=== PATIENT | female | born 1970 | race Caucasian/White ===

== ENCOUNTER 2017-01-30 08:41 | Inpatient (IN) ==
[2017-01-29 10:20] LABS: Basophils % 0.4 % (0.0-0.8); Eosinophils # 0.1 10*3/uL (0.0-0.87); Eosinophils % 1.4 % (0.00-10.9); Hematocrit 39.7 VOL% (35.7-47.0); Hemoglobin 13.5 GM/DL (12.0-16.0); Immature Granulocytes % 0.3 %; Immature Granulocytes Absolute 0.02 #; Lymphocytes # 1.9 10*3/uL (1.4-4.0); Lymphocytes % 26.3 % (21.3-54.2); Mean Corpuscular Hemoglobin 30 PG (27-34); Mean Corpuscular Volume 88.4 FL (87-102); Mean Platelet Volume 10.4 FL (9.6-12.0); Monocytes # 0.5 10*3/uL (0.11-0.8); Monocytes % 6.6 % (1.7-12.7); Neutrophils # 4.6 10*3/uL (1.4-7.4); Platelet Count 239 T/CUMM (130-400); Red Blood Count 4.49 MC/CUMM (3.8-5.5); Red Cell Distribution Width 13.4 % (9.3-17.3); White Blood Count 7.1 T/CUMM (4-12)
--- NOTE | 2017-01-29 10:27 | EKG Report ---
Stationary ECG Study [facility] Test Date: 01/29/2017 10:26:33 AM Pat Name: ARIELA AGUSTIN Department: Room: Gender: F Dispatcher [place]: BRITANY MOREJON : 1970 Requested by: Abel Morejon Order Number: [id number] Reading MD: ALIE BLEVINS Intervals [place] Rate: 69 P: -19 HI: 140 QRS: 102 QRSD: 93 T: 48 QT: 375 QTc: 395 Interpretive Statements SINUS RHYTHM MARKED RIGHT AXIS DEVIATION LOW QRS VOLTAGE IN PRECORDIAL LEADS Electronically Signed On 01-29-17 13:02:40 CDT by ALIE BLEVINS [email or web address]
[2017-01-29 10:58] LABS: Albumin 3.6 G/DL (3.4-5.0); Bilirubin,Total 0.8 MG/DL (0.2-1.0); Calcium 9.3 MG/DL (8.5-10.1); Osmolality,Calculated 272.7 MOS/KG (273-304); Potassium 4.3 MMOL/L (3.5-5.1); Total Protein 6.6 G/DL (6.4-8.3)
--- NOTE | 2017-01-29 13:23 | XRay Report ---
XR chest 2V Date: 01/29/2017 10:03 AM History: Respiratory preoperative evaluation Comparison: None Technique: PA and lateral chest Findings: The heart is normal in size. The lungs are clear. Minimal degenerative changes are noted. Unremarkable mediastinum. Impression: No acute cardiopulmonary pathology identified. PROCEDURE INTERPRETED AT [facility] DEPARTMENT OF RADIOLOGY Final Report Signed by: Dr. Karon Byers
[2017-01-30] MEDS ORDERED: SODIUM CHLORIDE 0.9% IV ONE (10:00)
[2017-01-30] MEDS ORDERED: HYDROMORPHONE IV ONE (10:00)
[2017-01-30] MEDS: LACTATED RINGERS 1,000 ML IV SCH ×2 (10:05→11:50)
[2017-01-30] MEDS ORDERED: ceFAZolin 1,000 MG VIAL ONE (10:53)
[2017-01-30] MEDS ORDERED: SODIUM CHLORIDE 0.9% 100 ML IV ONE (10:54)
[2017-01-30] MEDS ORDERED: HYDROmorphone 2 MG/1 ML VIAL IV STA (11:00)
[2017-01-30] MEDS ORDERED: HYDROmorphone 2 MG/1 ML VIAL ONE (11:03)
[2017-01-30] MEDS ORDERED: ROPIVACAINE 0.5% 30 ML VIAL ONE (11:21)
[2017-01-30] MEDS ORDERED: PROMETHAZINE 25 MG/1 ML VIAL IM PRN (12:34)
[2017-01-30] MEDS ORDERED: diphenhydrAMINE 50 MG/1 ML VIAL IM PRN (12:34)
[2017-01-30] MEDS ORDERED: BISACODYL 5 MG TABLET PO PRN (12:34)
[2017-01-30] MEDS ORDERED: oxyCODONE/ACETAMINOPHEN 5-325 MG TABLET PO PRN (12:34)
[2017-01-30] MEDS ORDERED: FAMOTIDINE 20 MG TABLET PO PRN (12:34)
[2017-01-30] MEDS ORDERED: diphenhydrAMINE CAP 25 MG CAPSULE PO PRN (12:34)
[2017-01-30] MEDS ORDERED: LACTATED RINGERS 500 ML IV PRN (12:34)
[2017-01-30] MEDS ORDERED: ACETAMINOPHEN 325 MG TABLET PO PRN (12:34)
[2017-01-30] MEDS ORDERED: PROMETHAZINE 25 MG TABLET PO PRN (12:34)
[2017-01-30] MEDS ORDERED: MAGNESIUM HYDROXIDE SUSP 30 ML UDCUP PO PRN (12:34)
[2017-01-30] MEDS ORDERED: NALOXONE 0.4 MG/ML VIAL IM PRN (12:34)
[2017-01-30] MEDS ORDERED: HYDROmorphone 2 MG/1 ML VIAL IV PRN (12:34)
[2017-01-30] MEDS ORDERED: ONDANSETRON 4 MG/2 ML VIAL IV PRN (12:34)
[2017-01-30] MEDS ORDERED: KETOROLAC 15 MG/1 ML VIAL IV PRN (12:34)
[2017-01-30] MEDS ORDERED: CELECOXIB 200 MG CAPSULE PO PRN (12:34)
[2017-01-30] MEDS ORDERED: LACTATED RINGERS 250 ML IV PRN (12:34)
--- NOTE | 2017-01-30 12:44 | Anesthesia Post-Op ---
Anesthesia Post OP - Post Ansesthetic Evaluation Patient seen in post op: Yes Resp: within normal limits CV: within normal limits Mental: within normal limits Temp: within normal limits [id number]-[id number]-[id number]: within normal limits Nausea and Vomiting: within normal limits Pain: within normal limits
[2017-01-30] MEDS ORDERED: MIDAZOLAM 2 MG/2 ML VIAL ONE (12:47)
[2017-01-30] MEDS ORDERED: fentaNYL 100 MCG/2 ML VIAL ONE (12:47)
--- NOTE | 2017-01-30 13:14 | Operative Note ---
Date of procedure: 01/30/17 Pre-op diagnosis: Lumber radiculopathy Post-op diagnosis: same Procedure: Preoperative diagnosis: #1 lumbar radiculopathy, #2 lumbar degenerative disc disease, #3 thoracic radiculopathy, #4 thoracic spondylosis, #5 chronic pain syndrome, #6 failed back syndrome. Postoperative diagnosis: Same Procedure: Placement of tunneled intrathecal externalized spinal catheter Anesthesia: MAC Complications: None Findings: The patient tolerated the procedure well, were able to place the tip of the catheter at approximately T12. History of present illness the patient is a very pleasant 46-year-old female who comes to me from [facility] with having had multiple back surgeries and failed spinal cord similar trial and permanent implants with paddle leads. She has severe chronic pain that has not responded to multiple modalities including physical therapy and surgery injection therapy neuromodulation opioid therapy etc. she is now candidate for intrathecal spinal trial. History of present illness: As above Procedure note: The risk benefits and indications of the procedure were explained to the patient including option do not at all, she understood these and wished to proceed. The patient was placed in prone position on the operating table, her back was prepped with alcohol and ChloraPrep allowed to dry and sterilely draped. The needle use was a 17-gauge modified to a needle which was inserted through skin wheal and advanced into the subarachnoid space above her fusion at the L3-4 level. Clear spinal fluid was returned from the hub of the needle. Then advanced the flexed hip type arrow catheter with wire reinforcement within the catheter. This is advanced under fluoroscopy until the tip was at approximately T12. Once adequate position had been achieved and then back the needle out somewhat and made a small incision around the needle site. The skin was raised lateral to this and a second Touhy needle was advanced from the lateral side until the tip entered the wound at the midline site and exited out the wound. The original Touhy needle was removed and the catheter then was advanced through the tunnel needle and the tunnel needle was removed thus tunneling the catheter laterally. Using 3-0 silk stitches the wound was closed at the midline. A stitch was placed at the exit site catheter and the catheter was sutured to the skin as well. The catheter connector was placed on the tip of the catheter and this was taped and Steri-Stripped so that the connection would not come apart. I then injected 3 cc 1.5% bupivacaine with 1-400,000 epinephrine through micropore filter and through the catheter into the subarachnoid space. Prior to doing this I did aspirate 1 cc of clear spinal fluid. The patient then had her wounds sterilely dressed and she was taken to recovery area in satisfactory condition. Anesthesia: MAC Surgeon / Physician: Abel Mathias Estimated blood loss: none Specimens: none sent Condition: stable Disposition: PACU Results - Labs CBC & BMP: 01/29/17 10:14 01/29/17 10:14 Discharge Plan - Discharge Data Condition at Discharge: Stable - Follow Up or Referral - Forms/Instructions
[2017-01-30] MEDS ORDERED: PROPOFOL 200 MG/20 ML VIAL IV ONE (15:00)
[2017-01-30] MEDS ORDERED: LIDOCAINE 1% 5 ML VIAL ONE (15:00)
[2017-01-30] MEDS: HydrOXYzine PAMOATE 25 MG CAPSULE PO PRN ×2 (16:19→22:30)
[2017-01-30] MEDS ORDERED: ALPRAZolam 0.25 MG TABLET PO PRN (17:41)
[2017-01-30] MEDS ORDERED: HydrOXYzine PAMOATE 25 MG CAPSULE PO PRN (17:41)
[2017-01-30] MEDS: diphenhydrAMINE 50 MG/1 ML VIAL IV PRN (21:00)
[2017-01-30] MEDS: BISOPROLOL 5 MG TABLET PO SCH (21:01)
[2017-01-30] MEDS: PRAMIPEXOLE 0.25 MG TABLET PO SCH (21:01)
[2017-01-30] MEDS: ZALEPLON 5 MG CAPSULE PO PRN (21:01)
[2017-01-30] MEDS: GABAPENTIN 300 MG CAPSULE PO SCH (21:01)
[2017-01-30] MEDS: KETOROLAC 30 MG/1 ML VIAL IV PRN (22:30)
[2017-01-31] MEDS: HydrOXYzine PAMOATE 25 MG CAPSULE PO PRN ×4 (06:07→21:41)
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
[2017-01-31] MEDS ORDERED: HYDROMORPHONE IV ONE (09:00)
[2017-01-31] MEDS ORDERED: SODIUM CHLORIDE 0.9% IV ONE (09:00)
[2017-01-31] MEDS: VENLAFAXINE XR 75 MG CAPSULE PO SCH (09:18)
[2017-01-31] MEDS: BISOPROLOL 5 MG TABLET PO SCH ×2 (09:18→20:41)
[2017-01-31] MEDS: GABAPENTIN 300 MG CAPSULE PO SCH ×3 (09:18→20:41)
[2017-01-31] MEDS: LINACLOTIDE 145 MCG CAPSULE PO SCH (09:19)
--- NOTE | 2017-01-31 13:33 | Event Note ---
Patient has overall improvement in her pain however having significant generalized itching. We will switch her from intrathecal Dilaudid to intrathecal morphine to see if this changes.
[2017-01-31] MEDS ORDERED: MORPHINE 10 MG/10 ML VIAL EPIDURAL SCH (15:30)
[2017-01-31] MEDS: MORPHINE EPIDURAL SCH (16:48)
[2017-01-31] MEDS: SODIUM CHLORIDE 0.9% EPIDURAL SCH (16:48)
--- NOTE | 2017-01-31 16:49 | Event Note ---
The patient reports worsening itching today and thus the Dilaudid intrathecal infusion was discontinued. They have just hooked up the morphine intrathecal infusion and will try this as the second step in her intrathecal trial. Will reevaluate first thing in the morning.
[2017-01-31] MEDS: LACTATED RINGERS 1,000 ML IV SCH ×2 (17:24→20:32)
[2017-01-31] MEDS: diphenhydrAMINE 50 MG/1 ML VIAL IV PRN (18:29)
[2017-01-31] MEDS: PRAMIPEXOLE 0.25 MG TABLET PO SCH (20:41)
[2017-01-31] MEDS: ZALEPLON 5 MG CAPSULE PO PRN (20:45)
[2017-01-31] MEDS: KETOROLAC 30 MG/1 ML VIAL IV PRN (21:40)
[2017-02-01] MEDS: KETOROLAC 30 MG/1 ML VIAL IV PRN ×2 (04:51→15:21)
[2017-02-01] MEDS: LINACLOTIDE 145 MCG CAPSULE PO SCH (06:33)
--- NOTE | 2017-02-01 07:00 | Pain Management Progress Note ---
Assessment and Plan (1) Lumbar radiculopathy Problem details: Low back and bilateral leg pain. Status: Acute Assessment and plan: 02/01/2017. Overall the patient is markedly improved with morphine. No significant itching. No excess sedation. Will increase the rate of the infusion slightly this morning and she is to walk the halls. I examine her spinal catheter site and it looks good no signs of redness infection, etc. she reported wetness on her low back prior to dressing change this morning however did not see any signs of infection. The catheter was intact and connected. Will increase rate and allow her to walk today and plan on discharge late today. y 01/31/2017. The patient is a very pleasant 46-year-old female who has had multiple back surgeries and is left with thoracic and lumbar spinal pain. She has a thoracic radiculopathy as well as a lumbar radiculopathy. She is undergone multiple interventions including multiple spinal cord stimulator leads placed, multiple different medicines tried including multiple opioids and adjuvant medicines, she has been to spinal surgery, she has been through extensive physical therapy, and despite all these interventions has persistent back pain. She was sent to me for consideration for intrathecal opioids. She is presently undergoing intrathecal trial. She is most greater than 50% improved at this time with intrathecal Dilaudid. Only significant side effect is itching. No significant sedation. The plan at this point is to continue with the trial. I will check on her at noon today and make further recommendations. If her pain continues to improve and she is doing well we may consider discharge tonight if not we will look at possibly going home tomorrow. y Current Visit: Yes Pain - Subjective Interval history: Improved back pain without itching Exam - Constitutional Vitals: Period Temp Pulse Resp BP Sys/Arrieta Pulse Ox Last 24 Hr 97.2 F-98.2 F 53-96 16-20 106-140/59-98 93-98 General appearance: normal weight, no acute distress - Back Exam Back exam: Present: vertebral tenderness, other (Examination of back shows no redness no signs of infection and intact spinal catheter) - Neurological Exam Neurological exam: Present: motor sensory deficit Results - Labs CBC & BMP: 01/29/17 10:14 01/29/17 10:14 Quality Measures - VTE Contraindication to Pharmacological VTE Prophylaxis: Continuous Epidural Infusion Specialty Discharge - Follow Up or Referrals Follow up with: Abel Mathias MD [Physician] - 02/07/17 3:30 pm (appointment with david sanchez np on february 02 2017 at 9:45 for wound check)
[2017-02-01] MEDS ORDERED: SODIUM CHLORIDE 0.9% EPIDURAL SCH (08:52)
[2017-02-01] MEDS ORDERED: MORPHINE EPIDURAL SCH (08:52)
[2017-02-01] MEDS: GABAPENTIN 300 MG CAPSULE PO SCH ×2 (08:53→15:21)
[2017-02-01] MEDS: BISOPROLOL 5 MG TABLET PO SCH (08:53)
[2017-02-01] MEDS: SODIUM CHLORIDE 0.9% EPIDURAL SCH (09:35)
[2017-02-01] MEDS: MORPHINE EPIDURAL SCH (09:35)
[2017-02-01] MEDS: VENLAFAXINE XR 75 MG CAPSULE PO SCH (11:28)
[2017-02-01] MEDS: HydrOXYzine PAMOATE 25 MG CAPSULE PO PRN (12:03)
[2017-02-01 16:16] VITALS: BP 118/72
--- NOTE | 2017-02-01 17:27 | Discharge Summary ---
Hospital Course - Hospital Course Hospital Course: The patient was admitted after placement of a intrathecal spinal catheter and surgery. For the first 24 hours she had intrathecal Dilaudid infused. She had improvement in her pain, however had intolerable intractable itching. On the second day of admission this was switched to intrathecal morphine. With this the itching went away and by the third day of admission her pain was 70% are more improved and she was ambulating freely in the halls. Her use of breakthrough medicines went down dramatically. Her trial was considered successful. Prior to discharge her spinal catheter was removed intact. Diagnosis - Discharge Diagnosis (1) Lumbar radiculopathy Status: Acute Specialty Discharge - Follow Up or Referrals Follow up with: Abel Mathias MD [Physician] - 02/07/17 3:30 pm (appointment with david sanchez np on february 02 2017 at 9:45 for wound check) Discharge Plan - Discharge Data Disposition: Disch To Home/Self Care Condition at Discharge: Stable Discharge Diet: advance to your usual diet Activity: increase activity as tolerated Hygiene: may shower Weight Bearing at Discharge: weight bear as tolerated Driving: not for (24 hours) Contact your physician if you experience:: fever over 101, Difficulty voiding, Redness or swelling, Nausea/Vomiting, Bleeding, pain uncontrolled by pain medications - Discharge Medications No Action Pramipexole Di-HCl [Mirapex] 0.5 mg PO BEDTIME Linaclotide [Linzess] 145 mcg PO AC BREAKFAST Gabapentin 300 mg PO TID Venlafaxine Xr [Effexor XR] 75 mg PO DAILY Hydromorphone HCl [Dilaudid] 8 mg PO Q6H Bisoprolol [Zebeta] 5 mg PO BID HydrOXYzine PAMOATE CAP [Vistaril Cap] 25 mg PO Q6H PRN PRN Reason: Itching ALPRAZolam [Xanax] 0.25 mg PO Q4H PRN PRN Reason: Anxiety Hydrocodone/Acetaminophen [[place] 10-325 Tablet] 1 each PO Q6H Estradiol 0.1MG Patch (1X Wk) [[place] 0.1 mg/24 hr Patch] 1 patch TRANSDERM Q7DAY - Follow Up or Referral Follow Up: Abel Mathias MD [Physician] - 02/07/17 3:30 pm (appointment with david sanchez np on february 02 2017 at 9:45 for wound check) - Forms/Instructions Instructions: Lumbar Radiculopathy (GEN) Exam - Constitutional Vitals: Period Temp Pulse Resp BP Sys/Arrieta Pulse Ox Last 24 Hr 97.1 F-98.2 F 53-96 18-20 112-154/59-98 95-99 General appearance: normal weight - Respiratory Respiratory exam: Present: clear to auscultation bilaterally - Cardiovascular Cardiovascular exam: Present: regular rate and rhythm - GI/Abdominal GI/Abdominal exam: Present: normal bowel sounds - Back Exam Back exam: Present: vertebral tenderness, other (Catheter sites clean without signs of infection.) - Neurological Exam Neurological exam: Present: alert, oriented X3 - Psychiatric Psychiatric exam: Present: normal affect, normal mood - Skin Skin exam: Present: normal color Discharge Results Labs on day of discharge: Labs from last 24 hours 02/01/17 02/01/17 02/01/17 16:22 11:39 07:14 POC Glucose 106 127 H 81 01/31/17 01/31/17 01/31/17 20:23 16:08 10:54 POC Glucose 94 96 91 DS: Provider Date of admission: 01/30/17 12:34 Primary care physician: . No PCP Attending physician on admission: Abel Mathias MD Consults: 01/30/17 12:41 Consult to Physical Therapy [CONS] Routine Reason for Physical Therapy: Evaluate and Treat Start Therapy: Today Consult Comment: Help ambulate 01/30/17 15:26 Consult to Pastoral Services [CONS] Routine Comment: Pastoral Screen: Request Ring Conductor Visit Pastoral Screen Source of Request: Patient Other Source Requesting: chronic pain 01/31/17 15:21 Consult to Case Mgmt/Social Srvs [CONS] Routine Reason for Case Mgmt/Social Srvs: Equipment Discharge Planning Consult Comment: Deliver Rollator to Pt's room 345 before D/C; Pt 5ft 3in 163lbs Discharging clinician: Abel Mathias MD
[2017-02-06] MEDS ORDERED: ESTRADIOL 0.1 MG PATCH (1X WK) TRANSDERM SCH (09:00)
== END 2017-02-01 18:30 | disposition home or self-care (01) | DRG 552 ==
LOC: N.OR 08:41 → N.SDSINP 09:43 → N.3E 12:34
PROVIDERS: ADMIT Pain Medicine Interventional Pain Medicine; ATTEND Pain Medicine Interventional Pain Medicine

== ENCOUNTER 2017-02-27 08:34 | Inpatient (IN) ==
[2017-02-27] MEDS ORDERED: SUCCINYLCHOLINE 200 MG/10 ML VIAL ONE (09:00)
[2017-02-27] MEDS ORDERED: GLYCOPYRROLATE 0.4 MG/2 ML VIAL ONE (09:00)
[2017-02-27] MEDS ORDERED: LIDOCAINE 100 MG/5 ML SYRINGE ONE (09:00)
[2017-02-27] MEDS ORDERED: SEVOFLURANE 1 UNIT/15 MINUTE INH ONE ×2 (09:00→14:09)
[2017-02-27] MEDS ORDERED: PROPOFOL 200 MG/20 ML VIAL IV ONE (09:00)
[2017-02-27] MEDS: LACTATED RINGERS 1,000 ML IV SCH ×2 (09:15→15:06)
[2017-02-27] MEDS ORDERED: SODIUM CHLORIDE 0.9% 100 ML IV ONE (09:26)
[2017-02-27] MEDS ORDERED: ceFAZolin 1,000 MG VIAL ONE (09:26)
[2017-02-27] MEDS ORDERED: HYDROmorphone 2 MG/1 ML VIAL IV ONE (10:00)
[2017-02-27] MEDS ORDERED: HYDROmorphone 2 MG/1 ML VIAL ONE ×2 (10:03→14:06)
[2017-02-27] MEDS ORDERED: MUPIROCIN 2% OINT 22 GM TUBE TOP ONE (10:24)
[2017-02-27] MEDS ORDERED: BUPIVACAINE 0.5% 50 ML VIAL ONE (10:24)
[2017-02-27] MEDS ORDERED: BACITRACIN 50,000 UNIT VIAL ONE (10:25)
[2017-02-27] MEDS ORDERED: POLYMYXIN B 500,000 UNIT VIAL ONE (10:25)
[2017-02-27] MEDS ORDERED: diphenhydrAMINE 50 MG/1 ML VIAL IV ONE (11:00)
[2017-02-27] MEDS ORDERED: diphenhydrAMINE 50 MG/1 ML VIAL ONE (11:05)
--- NOTE | 2017-02-27 13:55 | Operative Note ---
Date of procedure: 02/27/17 Pre-op diagnosis: Lumbar radiculopathy Post-op diagnosis: same Procedure: Preoperative diagnosis: #1 lumbar radiculopathy, #2 lumbar degenerative disc disease, #3 thoracic radiculopathy, #4 thoracic spondylosis, #5 chronic pain syndrome, #6 failed back syndrome. Postoperative diagnosis: Same Procedure: Placement of intrathecal drug infusion system including programmable Medtronic drug infusion pump 40 cc and intrathecal catheter. Anesthesia: MAC Complications: None Findings: The patient tolerated the procedure well History of present illness: The patient is very pleasant 46-year-old female with low back and leg pain as well as mid back and torso pain she has both a thoracic and lumbar radiculopathy. She has had multiple spinal surgeries and has failed these with persistent consistent pain. She is failed other modalities including time release opioids and is found to be an appropriate candidate for intrathecal drug infusion system based on history and exam and psychological profile and clearance by. The medicine team. She underwent a successful intrathecal trial with 90% reduction in her pain with intrathecal morphine. Estimated blood loss: Minimal Procedure note: The risk benefits and indications of the procedure were explained to the patient, including the option to do nothing at all, she understood these wished to proceed. The patient was placed in the lateral decubitus position with the right set up after general anesthesia had been induced. All pressure points had been padded. Her abdomen back and torso were prepped with alcohol then ChloraPrep allowed to dry and sterilely draped. A sticky iodoform drape was placed over the surgical field as well. The midline site in the back as well as the pocket site and abdomen were anesthetized with 0.5% ropivacaine. A total of 20 cc of this local anesthetic was used. Using a 15 blade scalpel incision was made over the old scar at the lower aspect of the lumbar spine, hemostasis was obtained with electrocautery. Using blunt dissection I carried this out down the level of supraspinous ligament. I then advanced through the wound the 14-gauge modified to a needle and this was advanced until it entered the subarachnoid space without difficulty. Clear spinal fluid was returned from the hub of the needle. Then advanced the Medtronic intrathecal catheter and this was advanced in a cephalad direction. The tip of the catheter was advanced under fluoroscopy until it was located at the T7-8 junction. Once this had been achieved I then removed the stylette and needle leaving the catheter in place. A spur string stitch was placed around the entry site of the catheter. This was a 0 silk stitch and it was tied off securing the cath in place. Then passed the symptoms type anchor over the catheter and sensitive to the catheter and sutured as well using 0 silk stitches. I then turned my attention to the pocket site over the right abdomen which had been previously marked. Was doing this an assistant professor of business prepped the new intrathecal spinal pump. The sterile water was removed and the pump was filled with 40 cc of 5 mg/mL morphine preservative-free. I then anesthetized the proximal site right abdomen and using a 15 blade scalpel incision over the right abdomen and then using blunt dissection created a pocket received the spinal pump. Hemostasis was obtained with electrocautery. I then passed the passing device from the pocket site to the midline site in the back this was tunneled under the skin to the back. The cord was removed and the catheter was advanced through the passing device without difficulty the passing device was then was removed thus tunneling the catheter to the pocket site. Free flow of spinal fluid was obtained from the catheter. I then cut off 8 cm of the catheter and attached the catheter and to the catheter and secured this in place with the locking mechanism supplied on the catheter. The free end of the catheter then was secured to the new pump and the catheter connection was clicked into place. The pump was placed into the pocket and sutured at least 3 locations with 0 silk stitches to the suture loops. The wounds were irrigated with copious amount of antibiotic solution, the deep structures were closed with 2-0 Vicryl. The skin was closed with mati and the wounds were sterilely dressed. The patient was then taken to recovery area in satisfactory condition where the pump was started at 0.8 mg per day of preservative-free morphine. Anesthesia: GETA Surgeon / Physician: Abel Mathias Estimated blood loss: minimal Specimens: none sent Condition: stable Disposition: PACU Discharge Plan - Discharge Data Condition at Discharge: Stable Hygiene: may shower (Not for 72 hours) Contact your physician if you experience:: fever over 101, Difficulty voiding, Redness or swelling, Nausea/Vomiting, Shortness of breath, Bleeding, pain uncontrolled by pain medications - Discharge Medications No Action Pramipexole Di-HCl [Mirapex] 0.5 mg PO BEDTIME Linaclotide [Linzess] 145 mcg PO AC BREAKFAST Gabapentin 300 mg PO TID Venlafaxine Xr [Effexor XR] 75 mg PO DAILY Hydromorphone HCl [Dilaudid] 8 mg PO Q6H Bisoprolol [Zebeta] 5 mg PO BID HydrOXYzine PAMOATE CAP [Vistaril Cap] 25 mg PO Q6H PRN PRN Reason: Itching ALPRAZolam [Xanax] 0.25 mg PO Q4H PRN PRN Reason: Anxiety Hydrocodone/Acetaminophen [[place] 10-325 Tablet] 1 each PO Q6H Estradiol 0.1MG Patch (1X Wk) [[place]im[place] 0.1 mg/24 hr Patch] 1 patch TRANSDERM Q7DAY - Follow Up or Referral - Forms/Instructions
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
[2017-02-27] MEDS ORDERED: ONDANSETRON 4 MG/2 ML VIAL ONE (14:04)
[2017-02-27] MEDS: HYDROmorphone 2 MG/1 ML VIAL IV PRN ×3 (14:08→14:25)
[2017-02-27] MEDS ORDERED: fentaNYL 100 MCG/2 ML VIAL ONE (14:09)
[2017-02-27] MEDS ORDERED: ONDANSETRON 4 MG/2 ML VIAL IV PRN ×2 (14:14→14:50)
[2017-02-27] MEDS ORDERED: FAMOTIDINE 20 MG TABLET PO PRN (14:50)
[2017-02-27] MEDS ORDERED: diphenhydrAMINE 50 MG/1 ML VIAL IM PRN (14:50)
[2017-02-27] MEDS ORDERED: METHOCARBAMOL 750 MG TABLET PO PRN (14:50)
[2017-02-27] MEDS ORDERED: ALPRAZolam 0.25 MG TABLET PO PRN (16:27)
[2017-02-27] MEDS: MORPHINE 2 MG/1 ML SYRINGE IV PRN ×2 (17:40→21:18)
[2017-02-27] MEDS: BISOPROLOL 5 MG TABLET PO SCH (21:17)
[2017-02-27] MEDS: PRAMIPEXOLE 0.25 MG TABLET PO SCH (21:17)
[2017-02-27] MEDS: HydrOXYzine PAMOATE 25 MG CAPSULE PO PRN (21:18)
[2017-02-27] MEDS: GABAPENTIN 300 MG CAPSULE PO SCH (21:18)
[2017-02-27] MEDS: ZALEPLON 5 MG CAPSULE PO PRN (21:26)
[2017-02-27] MEDS: ESTRADIOL 2 MG TABLET PO SCH (21:26)
[2017-02-28] MEDS: MORPHINE 2 MG/1 ML SYRINGE IV PRN ×5 (05:17→19:24)
[2017-02-28] MEDS: HydrOXYzine PAMOATE 25 MG CAPSULE PO PRN ×2 (07:04→12:15)
--- NOTE | 2017-02-28 07:08 | Discharge Summary ---
Hospital Course - Hospital Course Hospital Course: Admitted to the hospital after placement of a intrathecal drug infusion system. She has done well except for incisional pain primarily in the abdomen. Her normal back pain has improved steadily as the drug infusion system has infused into the spinal space. Diagnosis - Discharge Diagnosis (1) Lumbar radiculopathy Status: Acute (2) Thoracic spondylosis with radiculopathy Status: Acute (3) Chronic pain syndrome Status: Acute Discharge Plan - Discharge Data Disposition: Disch To Home/Self Care Condition at Discharge: Stable Discharge Diet: advance to your usual diet Activity: resume usual activities as tolerated Hygiene: may shower (After 48 hours) Driving: not until seen by doctor Contact your physician if you experience:: fever over 101, Difficulty voiding, Redness or swelling, Nausea/Vomiting, Shortness of breath, Bleeding, pain uncontrolled by pain medications Wound / Dressing Care Instructions: Redress wounds with sterile 4 x 4. We will plan to see in clinic on 03/01/2017. At that time we will place her dressings again. - Discharge Medications No Action Pramipexole Di-HCl [Mirapex] 0.5 mg PO BEDTIME Linaclotide [Linzess] 145 mcg PO AC BREAKFAST Gabapentin 300 mg PO TID Venlafaxine Xr [Effexor XR] 75 mg PO DAILY Hydromorphone HCl [Dilaudid] 8 mg PO Q6H Bisoprolol [Zebeta] 5 mg PO BID HydrOXYzine PAMOATE CAP [Vistaril Cap] 25 mg PO Q6H PRN PRN Reason: Itching ALPRAZolam [Xanax] 0.25 mg PO Q4H PRN PRN Reason: Anxiety Hydrocodone/Acetaminophen [[place] 10-325 Tablet] 1 each PO Q6H Estradiol [Estradiol Tab] 2 mg PO BEDTIME - Follow Up or Referral - Forms/Instructions Exam - Constitutional Vitals: Period Temp Pulse Resp BP Sys/[place] Pulse Ox Last 24 Hr 97.6 F-99.2 F 59-105 16-22 99-143/63-97 14-99 General appearance: normal weight - Respiratory Respiratory exam: Present: clear to auscultation bilaterally - Cardiovascular Cardiovascular exam: Present: regular rate and rhythm - GI/Abdominal GI/Abdominal exam: Present: normal bowel sounds, other (Wounds look good and dry ) - Back Exam Back exam: Present: vertebral tenderness, other (Wounds look good and dry) DS: Provider Date of admission: 02/27/17 14:51 Attending physician on admission: Abel Mathias MD Discharging clinician: Abel Mathias MD
[2017-02-28] MEDS: LINACLOTIDE 145 MCG CAPSULE PO SCH (07:36)
[2017-02-28] MEDS: GABAPENTIN 300 MG CAPSULE PO SCH ×3 (08:45→20:24)
[2017-02-28] MEDS: BISOPROLOL 5 MG TABLET PO SCH ×2 (08:45→20:23)
[2017-02-28] MEDS: VENLAFAXINE XR 75 MG CAPSULE PO SCH (08:45)
[2017-02-28] MEDS: diphenhydrAMINE CAP 25 MG CAPSULE PO PRN ×2 (09:04→16:05)
[2017-02-28 12:08] LABS: Basophils % 0.3 % (0.0-0.8); Eosinophils # 0.1 10*3/uL (0.0-0.87); Eosinophils % 1.4 % (0.00-10.9); Hematocrit 36.3 VOL% (35.7-47.0); Hemoglobin 12.6 GM/DL (12.0-16.0); Immature Granulocytes % 0.3 %; Immature Granulocytes Absolute 0.03 #; Lymphocytes # 1.8 10*3/uL (1.4-4.0); Lymphocytes % 19.8 % (21.3-54.2); Mean Corpuscular HGB Conc 34.7 GM/DL (32-36); Mean Corpuscular Hemoglobin 31 PG (27-34); Mean Corpuscular Volume 89.9 FL (87-102); Mean Platelet Volume 11.2 FL (9.6-12.0); Monocytes # 0.6 10*3/uL (0.11-0.8); Monocytes % 6.7 % (1.7-12.7); Neutrophils # 6.5 10*3/uL (1.4-7.4); Neutrophils % 71.5 % (38.7-73.9); Platelet Count 166 T/CUMM (130-400); Red Blood Count 4.04 MC/CUMM (3.8-5.5); Red Cell Distribution Width 13.3 % (9.3-17.3); White Blood Count 9.1 T/CUMM (4-12)
--- NOTE | 2017-02-28 12:14 | XRay Report ---
XR chest 2V Indication: Fever Comparison: 29 January 2017 Findings: The heart and mediastinum are normal in size and configuration. The pulmonary vascularity is normal in caliber. No lung infiltrates, effusions, pneumothorax or other abnormality is demonstrated. Impression: Normal chest x-ray PROCEDURE INTERPRETED AT [facility] DEPARTMENT OF RADIOLOGY Final Report Signed by: Dr. Reilly Perry
[2017-02-28 15:08] LABS: Apearance,Urine CLEAR (Clear); Bilirubin,Urine Negative (Negative); Blood, Urine Negative (Negative); Glucose,Urine (UA) Negative (Negative); Ketones,Urine Negative (Negative); Nitrite,Urine Negative (Negative); Protein,Urine Negative; RBC,Urine <1 /HPF (0-4); Squamous Epithelial Cell,Urine Occasional /HPF (0-10); Urine Color Colorless (Yellow); Urine Specific Gravity 1.003 (1.001-1.035); Urine Urobilinogen < 2.0 EU/DL (0.2-1.0); WBC,Urine 1 /HPF (0-6)
[2017-02-28] MEDS: LACTATED RINGERS 1,000 ML IV SCH (16:26)
[2017-02-28] MEDS ORDERED: HydrOXYzine PAMOATE 25 MG CAPSULE PO PRN (17:28)
--- NOTE | 2017-02-28 17:30 | Event Note ---
Patient with fever around the time of discharge of 101. Suspect URI since the patient has a scratchy throat and a mild cough. Chest x-ray CBC urinalysis etc. all okay. If becomes afebrile will shoot for discharge first thing in the morning. We will continue Ancef in the meantime.
[2017-02-28] MEDS: PRAMIPEXOLE 0.25 MG TABLET PO SCH (20:24)
[2017-02-28] MEDS: ESTRADIOL 2 MG TABLET PO SCH (20:24)
[2017-02-28] MEDS: ZALEPLON 5 MG CAPSULE PO PRN (20:27)
[2017-03-01] MEDS: MORPHINE 2 MG/1 ML SYRINGE IV PRN ×3 (00:02→07:39)
[2017-03-01] MEDS: LACTATED RINGERS 1,000 ML IV SCH (00:02)
[2017-03-01] MEDS: diphenhydrAMINE CAP 25 MG CAPSULE PO PRN (05:29)
--- NOTE | 2017-03-01 06:59 | Discharge Summary ---
Hospital Course - Hospital Course Hospital Course: 03/01/2017. At the time of discharge yesterday the patient's temperature was over 10 1F which was called to our office by the floor nurse. Because of his labs were drawn and antibiotics started. The patient has been afebrile for overnight and to the afternoon yesterday. No signs of infection seen at this point. Suspect viral upper respiratory tract infection. Okay to discharge this morning. 02/28/2017 admitted to the hospital after placement of a intrathecal drug infusion system. She has done well except for incisional pain primarily in the abdomen. Her normal back pain has improved steadily as the drug infusion system has infused into the spinal space. Diagnosis - Discharge Diagnosis (1) Lumbar radiculopathy Status: Acute (2) Thoracic spondylosis with radiculopathy Status: Acute (3) Chronic pain syndrome Status: Acute Specialty Discharge - Follow Up or Referrals Follow up with: Abel Mathias MD [Physician] - 03/01/17 2:30 pm Discharge Plan - Discharge Data Disposition: Disch To Home/Self Care Condition at Discharge: Stable Discharge Diet: advance to your usual diet Activity: resume usual activities as tolerated Hygiene: may shower (After 48 hours) Weight Bearing at Discharge: weight bear as tolerated Driving: not for (7 days) Contact your physician if you experience:: fever over 101, Difficulty voiding, Redness or swelling, Nausea/Vomiting, Shortness of breath, Bleeding, pain uncontrolled by pain medications - Discharge Medications No Action Pramipexole Di-HCl [Mirapex] 0.5 mg PO BEDTIME Linaclotide [Linzess] 145 mcg PO AC BREAKFAST RX: Gabapentin 300 mg PO TID Venlafaxine Xr [Effexor XR] 75 mg PO DAILY Hydromorphone HCl [Dilaudid] 8 mg PO Q6H Bisoprolol [Zebeta] 5 mg PO BID HydrOXYzine PAMOATE CAP [Vistaril Cap] 25 mg PO Q6H PRN PRN Reason: Itching ALPRAZolam [Xanax] 0.25 mg PO Q4H PRN PRN Reason: Anxiety Hydrocodone/Acetaminophen [[place] 10-325 Tablet] 1 each PO Q6H Estradiol [Estradiol Tab] 2 mg PO BEDTIME - Follow Up or Referral Follow Up: Abel Mathias MD [Physician] - 03/01/17 2:30 pm - Forms/Instructions Exam - Constitutional Vitals: Period Temp Pulse Resp BP Sys/[place] Pulse Ox Last 24 Hr 98.4 F-99.5 F 86-93 18-20 101-122/50-77 94-95 General appearance: normal weight - Respiratory Respiratory exam: Present: clear to auscultation bilaterally - Cardiovascular Cardiovascular exam: Present: regular rate and rhythm - GI/Abdominal GI/Abdominal exam: Present: normal bowel sounds, soft, other (Wounds covered with sterile dressing) Discharge Results Procedures and tests throughout hospitalization: Pending Orders 02/28/17 11:22 Blood Culture Stat Labs on day of discharge: Labs from last 24 hours 02/28/17 02/28/17 15:00 11:22 WBC 9.1 RBC 4.04 Hgb 12.6 Hct 36.3 MCV 89.9 MCH 31 MCHC 34.7 RDW 13.3 Plt Count 166 MPV 11.2 Neut % (Auto) 71.5 Lymph % (Auto) 19.8 L [place] % (Auto) 6.7 Eos % (Auto) 1.4 Baso % (Auto) 0.3 Neut # (Auto) 6.5 Lymph # (Auto) 1.8 [place] # (Auto) 0.6 Eos # (Auto) 0.1 Baso # (Auto) 0.0 Immature Gran % 0.3 Nucleated RBC % 0.0 Immature Gran # 0.03 Nucleated RBCs # 0.00 Urine Color Colorless Urine Appearance Clear Urine pH 6.0 Ur Specific [place] 1.003 Urine Protein Negative Urine Glucose (UA) Negative Urine Ketones Negative Urine Blood Negative Urine Nitrate Negative Urine Bilirubin Negative Urine Urobilinogen < 2.0 H Urine Leukocytes Negative Urine RBC <1 Urine WBC 1 Ur Squamous Epith Cells Occasional Ur Culture Indicated? Not indicated DS: Provider Date of admission: 02/27/17 14:51 Primary care physician: . No PCP Attending physician on admission: Abel Mathias MD Discharging clinician: Abel Mathias MD
[2017-03-01 07:06] VITALS: BP 94/51
[2017-03-01] MEDS: LINACLOTIDE 145 MCG CAPSULE PO SCH (09:12)
[2017-03-01] MEDS: GABAPENTIN 300 MG CAPSULE PO SCH (09:13)
[2017-03-01] MEDS: VENLAFAXINE XR 75 MG CAPSULE PO SCH (09:13)
[2017-03-01] MEDS: BISOPROLOL 5 MG TABLET PO SCH (09:13)
== END 2017-03-01 09:33 | disposition home or self-care (01) | DRG 517 ==
LOC: N.OR 08:34 → N.SDSINP 08:40 → N.3E 14:51
PROVIDERS: ADMIT Pain Medicine Interventional Pain Medicine; ATTEND Pain Medicine Interventional Pain Medicine